=== PATIENT | female | born 1955 | race Caucasian/White ===

== ENCOUNTER 2018-06-18 07:12 | Emergency (ER) | payer BC, MEDICAID ==
[~2018-06-18] VITALS: Ht 154.9 cm; Wt 62.1 kg
--- NOTE | 2018-06-18 07:12 | NUR ---
CAME IN FOR "HEART IS BEATING FAST" AND PALPITATION, DENIES CHEST PAIN, LIGHTHEADEDNESS, LOSS OF APPETITE, DIARRHEA x 3 DAYS, LOSS OF BALANCE. NOT ABLE TO TAKE METOPROLOL x 3 DAYS. TO ER BED 10, HOOKED TO MONITOR, CHANGED TO GOWN, PROVIDED W WARM BLANKET, AWAITING MD WHEAT.
--- NOTE | 2018-06-18 07:32 | NUR ---
DR MCNEAL AT BEDSIDE
[2018-06-18 07:51] LABS: BASOPHILS % (AUTO) 0.7 % (0.0-2.0); HEMATOCRIT 44 % (33-45); HEMOGLOBIN 15.3 g/dL (11.5-14.8); LYMPHOCYTES # (AUTO) 1.2 /CMM (0.8-4.8); LYMPHOCYTES % (AUTO) 17.9 % (20.0-44.0); MEAN CORPUSCULAR HGB CONC 35 g/dl (31.0-36.0); MEAN CORPUSCULAR VOLUME 99 fL (82-100); MONOCYTES # (AUTO) 0.4 /CMM (0.1-1.30); MONOCYTES % (AUTO) 6.7 % (2.0-12.0); NEUTROPHILS # (AUTO) 4.8 /CMM (1.8-8.9); NEUTROPHILS % (AUTO) 73.7 % (43.0-81.0); PLATELET COUNT (AUTO) 299 /CMM (150-450); RED BLOOD CELL COUNT(AUTO) 4.47 MIL/uL (4.0-5.2); WHITE BLOOD COUNT (AUTO) 6.5 K/uL (4.3-11.0)
[2018-06-18 07:59] LABS: CALCIUM, SERUM 9.1 mg/dL (8.5-10.1); CARBON DIOXIDE 29 mmol/L (21-32); CHLORIDE 107 mmol/L (98-107); CREATININE 0.9 mg/dL (0.6-1.3); GLUCOSE 133 mg/dL (74-106); POTASSIUM 4.3 mmol/L (3.5-5.1); SODIUM SERUM 145 mmol/L (136-145); UREA NITROGEN, BLOOD 17 mg/dL (7-18)
[2018-06-18] MEDS ORDERED: IV NS 0.9% 1,000 ML BAG IV ONE ×2 (08:00→10:30)
[2018-06-18 08:14] LABS: ALANINE AMINOTRANSFERASE 26 U/L (12-78); ALBUMIN 4.1 g/dL (3.4-5.0); ALKALINE PHOSPHATASE 83 U/L (46-116); ASPARTATE AMINOTRANSFERASE 26 U/L (15-37); BILIRUBIN,DIRECT 0.2 mg/dL (0.0-0.2); BILIRUBIN,TOTAL 0.8 mg/dL (0.2-1.0); TOTAL PROTEIN, SERUM 7.7 g/dL (6.4-8.2)
[2018-06-18] MEDS ORDERED: METO100T14 PO (10:30)
[2018-06-18] MEDS ORDERED: ALBU18HF2 IH (10:30)
[2018-06-18] MEDS ORDERED: TRAZ-182 PO (10:30)
[2018-06-18] MEDS ORDERED: ATOR10TA PO (10:30)
--- NOTE | 2018-06-18 11:00 | NUR ---
PATIENT MADE AWARE THAT SHE IS GOING TO BE TRANSFERRED TO [facility]. SIGNED CONSENT
--- NOTE | 2018-06-18 11:13 | NUR ---
SPOKE TO JIMMY OF [facility], PT WILL BE TRANSFERRED TO [facility]. AWAITING CALLBACK FOR ROOM # AND ACCEPTING MD. JIMMY WILL SET-UP TRANSPORTATION WHEN ROOM IS AVAILABLE.
[2018-06-18] MEDS ORDERED: LORAZEPAM INJ 2 MG/ML VIAL ONE ×2 (12:20→13:48)
[2018-06-18] MEDS ORDERED: LORAZEPAM INJ 2 MG/ML VIAL IV ONE ×2 (12:30→14:00)
--- NOTE | 2018-06-18 13:01 | NUR ---
[facility] WITH TRANSFER INFO, GOING TO [facility],ROOM 206-B, REPORT TO FAM [place] AT [phone],ETA E PM
--- NOTE | 2018-06-18 13:40 | NUR ---
REPORT GIVEN TO MARY JO [place] OF [facility].
[2018-06-18 14:26] VITALS: BP 125/85
--- NOTE | 2018-06-18 15:18 | NUR ---
Patient discharged to [facility] 23 in stable condition. Written and verbal after care instructions given. Patient verbalizes understanding of instruction. PT WILL BE TRANSFERRED TO [facility]. MARY JO [place] MADE AWARE PT IS ON THE WAY.
== END 2018-06-18 15:20 | disposition short-term general hospital (02) ==
LOC: ER 07:12
DX: R00.2 Palpitations (principal); R00.0 Tachycardia, unspecified; I10 Essential (primary) hypertension; R74.0 Nonspecific elevation of levels of transaminase and lactic acid dehydrogenase [LDH]; F41.9 Anxiety disorder, unspecified; R19.7 Diarrhea, unspecified; E78.5 Hyperlipidemia, unspecified; J44.9 Chronic obstructive pulmonary disease, unspecified; Z41.1 Encounter for cosmetic surgery; Z87.891 Personal history of nicotine dependence
CPT/HCPCS: 36415; 71045; 80048; 80076; 83605 ×2; 84443; 84484; 85025; 93005; 96361; 96374; 96376; 99285; J2060 ×2; J7030 ×2

== ENCOUNTER 2018-08-18 18:36 | Emergency (ER) | payer MEDICAID ==
[~2018-08-18 18:36] MED LIST: ALBU18HF2 IH; ATOR10TA PO; METO100T14 PO; TRAZ-182 PO
--- NOTE | 2018-08-18 19:23 | NUR ---
CALLED PT THREE TIMES IN WAITING ROOM. NO RESPONSE.
--- NOTE | 2018-08-18 20:07 | NUR ---
CALLED PT THREE TIMES IN WAITING ROOM. NO RESPONSE.
--- NOTE | 2018-08-18 20:41 | NUR ---
CALLED PT THREE TIMES IN WAITING ROOM. NO RESPONSE.
== END 2018-08-18 21:14 | disposition left against medical advice (07) ==
LOC: ER 18:45
DX: Z53.21 Procedure and treatment not carried out due to patient leaving prior to being seen by health care provider (principal)